=== PATIENT | male | born 1990 | race American Indian/Alaskan Native ===

== ENCOUNTER 2019-03-13 23:29 | Emergency (ER) | payer OTHER ==
[2019-03-13 23:53] VITALS: BP 135/63
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
== END 2019-03-14 04:10 | disposition home or self-care (01) ==
LOC: ED 23:29
DX: S39.012A Strain of muscle, fascia and tendon of lower back, initial encounter (principal); Z79.899 Other long term (current) drug therapy; V49.59XA Passenger injured in collision with other motor vehicles in traffic accident, initial encounter; Y93.89 Activity, other specified; Y92.410 Unspecified street and highway as the place of occurrence of the external cause; Y99.8 Other external cause status